=== PATIENT | male | born 1980 | race Two or more races ===

== ENCOUNTER 2020-11-17 05:12 | Emergency (ER) | payer MEDICAID, OTHER ==
[~2020-11-17] VITALS: Ht 167.6 cm; Wt 90.9 kg
[2020-11-17] MEDS ORDERED: POVIDONE-IODINE 10% 15 ML SOLUTION UD TP ONE (07:00)
[2020-11-17] MEDS ORDERED: LIDOCAINE 1% 10 ML VIAL IM ONE (07:00)
[2020-11-17] MEDS ORDERED: SODIUM CHLORIDE 0.9% 250 ML IRRIG SOLUTION BOTTLE IRRIG ONE (07:00)
[2020-11-17] MEDS ORDERED: BACITRACIN 0.9 GM PACKET OINTMENT TP ONE (07:39)
[2020-11-17 11:38] VITALS: BP 130/90
== END 2020-11-17 13:30 | disposition home or self-care (01) ==
LOC: EMS 05:15
DX: S62.316A Displaced fracture of base of fifth metacarpal bone, right hand, initial encounter for closed fracture (principal); S61.212A Laceration without foreign body of right middle finger without damage to nail, initial encounter; F10.10 Alcohol abuse, uncomplicated; W25.XXXA Contact with sharp glass, initial encounter; Y93.89 Activity, other specified; Y92.89 Other specified places as the place of occurrence of the external cause; Y99.8 Other external cause status
CPT/HCPCS: 12001; 73130; 99283; J3490